=== PATIENT | male | born 1995 | race Caucasian/White ===

== ENCOUNTER 2017-02-09 13:39 | Emergency (ER) | payer BC ==
[~2017-02-09] VITALS: Ht 177.8 cm; Wt 111.0 kg
[2017-02-09 13:42] VITALS: Ht 177.8 cm; Wt 111.0 kg
--- NOTE | 2017-02-09 15:29 | RADRPT ---
PROCEDURE: US Scrotum. CLINICAL INDICATION: Right testicular pain TECHNIQUE: Multiple sonographic images of the scrotal region were obtained utilizing a linear arra y transducer with grayscale and color-flow and a Doppler imaging. The images were reviewed on a high -resolution PACS workstation. COMPARISON: No prior studies are available for comparison. FINDINGS: Grade 4 testicular microlithiasis is present. The right testes measures 6.0 x 4.0 x 4.2 cm. There is a heterogeneous hypervascular mass in the testes measuring 4.8 x 3.5 x 4.1 cm. The right epididymis is visualized and unremarkable in appearance. There is normal color-flow. Grade 4 testicular microlithiasis is present. No focal areas abnormal echogenicity are visualized. T he left testicle measures 2.4 x 3.8 x 3.8 cm. There is normal color-flow. The left epididymis is vis ualized and is unremarkable in appearance. There is normal color-flow. The scrotal wall is unremarkable. No swelling or edema is seen. No other incidental abnormality is identified. IMPRESSION: 1. Intratesticular mass in the right testes measuring 4.8 x 4.1 cm. 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 2. Grade 4 bilateral testicular microlithiasis. RPTAT: HSM .Gage England MD, MD Date Time Electronically viewed and signed by .Gage England MD, MD on 02/09/2017 15:29 .M/
[2017-02-09] MEDS ORDERED: NAPR-260 PO (16:19)
[2017-02-09] MEDS ORDERED: HYDR-906 PO (16:20)
--- NOTE | 2017-02-10 22:30 | ERD ---
ER Documentation Chief Complaint Date/Time DATE: 02/10/17 TIME: 22:22 Chief Complaint right testicular pain x 3 weeks, no injury HPI This patient is a 21-year-old otherwise healthy male presenting to the emergency department with complaints of right testicular pain, swelling, and firmness ongoing constantly for the past 3 weeks. It is he feels a stabbing pain in the testicle which last for approximately 1 minute then resolves spontaneously. He states he has had similar symptoms in the past which self resolved. He denies radiation of pain. Denies hematuria, urinary symptoms, flank pain, or other symptoms currently. ROS All systems reviewed and are negative except as per history of present illness. Medications Home Meds Active Scripts Hydrocodone/Acetaminophen ([place] 5-325 Tablet) 1 Each Tablet, 1 TAB PO Q6H Y for PAIN, #7 TAB Prov:BRANDAN OROPEZA PA-C 02/09/17 Naproxen* (Naprosyn*) 500 Mg Tablet, 500 MG PO BID Y for PAIN AND/OR INFLAMMATION, #30 TAB Prov:BRANDAN OROPEZA PA-C 02/09/17 Physical Exam Vitals Vital Signs Date Time Temp Pulse Resp B/P Pulse Ox O2 Delivery O2 Flow Rate FiO2 02/09/17 13:42 98.7 87 18 196/102 99 Physical Exam Const: Nontoxic, well-appearing male in no acute distress. Head: Atraumatic Eyes: Normal Conjunctiva ENT: Normal External Ears, Nose and Mouth. Neck: Full range of motion..~ No meningismus. Resp: Clear to auscultation bilaterally Cardio: Regular rate and rhythm, no murmurs Abd: Soft, non tender, non distended. Normal bowel sounds Exam: Scrotum: There is slight increased size of the scrotum overall due to the increased size and firmness of the right testicle. Hernia: [None] Testes/Epid: The right testicle is approximately 4 times the size the left testicle. It is descended, but very firm. The right testicle is very tender to palpation, and full examination by palpation is limited secondary to pain. Unable to fully palpate the epididymis. The left testicle is normal on exam. Lymph: [No inguinal lymphadenopathy] Discharge: [None] Skin: No petechiae or rashes Ext: No cyanosis, or edema Neur: Awake and alert Psych: Normal Mood and Affect Procedures/MDM This is a pleasant 21-year-old male presenting to the emergency department with complaints of right testicular pain ongoing intermittently for the past 3 weeks. Physical examination is concerning for possible intratesticular mass. This was confirmed through ultrasound.Testicular ultrasound did confirm an intratesticular mass of the right testes measuring 4.8 x 4.1 cm. This is likely international account representative of a germ cell tumor. There is also grade 4 bilateral testicular microlithiasis. The patient declined pain medication in the department. Imaging results were shared with the patient. My medical decision making was shared with the patient. He was given instructions to have emergent follow-up with urology his primary care physician. On-call urology was consulted by my colleague, attending physician, Dr. Logan Prescott, and it was instructed that this patient is suitable for outpatient consultation with urology. After the patient was made aware of his results, and given a copy of the imaging studies, he was stable for discharge. He was given a prescription for pain medication. He is to return immediately for new or worsening symptoms. He is to have very close follow-up with the specialist and primary care physician within the next 1-2 days. PROCEDURE: US Scrotum. CLINICAL INDICATION: Right testicular pain TECHNIQUE: Multiple sonographic images of the scrotal region were obtained utilizing a linear array transducer with grayscale and color-flow and a Doppler imaging. The images were reviewed on a high-resolution PACS workstation. COMPARISON: No prior studies are available for comparison. FINDINGS: Grade 4 testicular microlithiasis is present. The right testes measures 6.0 x 4.0 x 4.2 cm. There is a heterogeneous hypervascular mass in the testes measuring 4.8 x 3.5 x 4.1 cm. The right epididymis is visualized and unremarkable in appearance. There is normal color-flow. Grade 4 testicular microlithiasis is present. No focal areas abnormal echogenicity are visualized. The left testicle measures 2.4 x 3.8 x 3.8 cm. There is normal color-flow. The left epididymis is visualized and is unremarkable in appearance. There is normal color-flow. The scrotal wall is unremarkable. No swelling or edema is seen. No other incidental abnormality is identified. IMPRESSION: 1. Intratesticular mass in the right testes measuring 4.8 x 4.1 cm. 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 2. Grade 4 bilateral testicular microlithiasis. RPTAT: HSM .Gage England MD, Date Time Electronically viewed and signed by .Gage England MD, on 02/09/2017 15:29 Departure Diagnosis: Primary Impression: Germ cell neoplasm of right testicle Condition: Fair Patient Instructions: Cancer of the Testicles Referrals: EILEEN FLORES MD,GABRIELE FAITH,LOUISE STACK,JULIA LAKE,RHEA CHAVEZ,QUENTIN MANRIQUE,SADIE MATTHEW,RHEA RICHARDS,RAZIA Paul MD [facility] URGENT CARE/SPECIALTIES Request to Evaluate for Specialty Care (Use this form only for uninsured patients) Referring Provider: Brandan Oropeza PA-C Patient Date of :1995 Specialty and Clinical reason(s) for request: Large Testicular Mass (Germ Cell Tumor) Patients Medications: Patients Pertinent Tests: Hospital Contact: [address] [place] [address] List of [facility] Facilities with Urgent Care Clinics [address] [address] 8:00am-12:00am (Midnight)(7 days a week) [facility] [address] [place] [id number] 7:30am-11:00pm (7 days a week) Amos Tafoya [facility] [address], [place] [address] 7:30am-12:00am (Midnight) 7:30am-8:00pm (Tuesday,Tuesday & Holidays) Jarad Barrow [facility] [address] [place], [place] [address] 8:00am-11:00pm (7 days a week) Del Murphy [facility] [address] [place], [place] [address] 8:00am-4:30pm (Tuesday-Tuesday) 8:30am-5:00pm (Tuesday) [facility] [address] [place], [place] [address] 8:00am-7:30pm (Tuesday-Tuesday) 8:00am-4:30pm (Tuesday) Clinical Services are not guaranteed as a result of this request. They are rendered based on medical necessity and are at the sole discretion of [facility]'s staff. The uninsured patient should bring the following ID documents: 1-Current [place] [employer]'s License or government issued ID (such as [facility] Consular ID or passport) 2-Social Security Card (if they have) 3-Proof of address 4-Proof of income Additional Instructions: Follow up with your PCP within the next 1-3 days for a repeat evaluation. If you require a referral to a specialist, your Primary Care Provider may be able to provide this for you. In most patient cases, a referral is not required. If you have further questions regarding this matter, please ask your Primary Care Provider. Return the the emergency department immediately if symptoms worsen or change. If you have any questions regarding medications, ask your pharmacist or us before you leave. If any adverse reactions, occur while taking your medications, discontinue the treatment and return to the emergency department immediately. If any new or worsening symptoms, uncontrolled fevers, or other unexplained symptoms occur, return to the emergency department immediately. Take your medications as directed, and complete the entire course of treatment. BRANDAN OROPEZA PA-C Feb 10, 2017 22:30
== END 2017-02-09 16:31 | disposition home or self-care (01) ==
LOC: FTE 13:39
DX: C62.91 Malignant neoplasm of right testis, unspecified whether descended or undescended (principal)
CPT/HCPCS: 76870